=== PATIENT | female | born 1940 | race Caucasian/White ===

== ENCOUNTER 2019-11-09 17:22 | Emergency (ER) | payer OTHER, MEDICARE, BC ==
[~2019-11-09] VITALS: Ht 165.1 cm; Wt 56.7 kg
[2019-11-09] MEDS ORDERED: ZESTRIL40 MG PO (17:33)
[2019-11-09] MEDS ORDERED: AMLODIPINE BESY10 MG PO (17:33)
[2019-11-09] MEDS ORDERED: LEVO-T50 MCG PO (17:34)
[2019-11-09] MEDS ORDERED: ALLOPURINOL100 MG PO (17:34)
[2019-11-09] MEDS ORDERED: METFORMIN HCL500 MG PO (17:34)
[2019-11-09] MEDS ORDERED: LIPITOR10 MG PO (17:35)
== END 2019-11-09 18:56 | disposition home or self-care (01) ==
LOC: ED 17:22
DX: S60.222A Contusion of left hand, initial encounter (principal); S60.221A Contusion of right hand, initial encounter; S00.81XA Abrasion of other part of head, initial encounter; R04.0 Epistaxis; W18.09XA Striking against other object with subsequent fall, initial encounter; I10 Essential (primary) hypertension; E11.9 Type 2 diabetes mellitus without complications; Z79.899 Other long term (current) drug therapy; Z79.84 Long term (current) use of oral hypoglycemic drugs
CPT/HCPCS: 70450; 73130; 99284-25